=== PATIENT | male | born 1975 | race African-American/Black ===

== ENCOUNTER 2018-05-17 04:14 | Emergency (ER) | payer OTHER ==
[2018-05-17 04:32] VITALS: BP 190/96; PULSE 79; TEMP 97.8; BMI 41.8
--- NOTE | 2018-05-17 05:32 | PDOC ---
Attending Attestation - Resident Resident Name: Ok Freed - ED Attending Attestation I have performed the following: I have examined & evaluated the patient, The case was reviewed & discussed with the resident, I agree w/resident's findings & plan, Exceptions are as noted
[2018-05-17] MEDS ORDERED: METHOCARBAMOL 500 MG TABLET PO ONE (06:01)
--- NOTE | 2018-05-17 06:04 | PDOC ---
History of Present Illness - General Chief Complaint: Back Pain Stated Complaint: LOWER BACK PAIN Time Seen by Provider: 05/17/18 04:32 History Source: Patient Exam Limitations: No Limitations - History of Present Illness Initial Comments: 05/17/18 05:56 42 yo male no sig pmh presents to the ED with 2 days of worsening right lower back pain. 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 The pain progressively worsened and pt began to have numbness and tingling radiate down the back of his right leg without crossing the knee joint. Pain is made worse with walking and bending forward. Pt went to an urgent care yesterday for the pain, was given a shot of toradol and a flexeril without improvement of symptoms. Denies weakness in the right lower ext, numbness between the legs or changes in urinary or bowel habits. Past History - Past Medical History Allergies/Adverse Reactions: Allergies Allergy/AdvReac Type Severity Reaction Status Date / Time No Known Allergies Allergy Verified 05/17/18 04:30 Home Medications: Ambulatory Orders Methocarbamol [Robaxin -] 500 mg PO BID PRN #14 tablet 05/17/18 Tramadol HCl 50 mg PO Q6H PRN #12 tablet MDD 4 tabs 05/17/18 COPD: No - Immunization History Immunization Up to Date: Yes - Suicide/Smoking/Psychosocial Hx Smoking History: Current every day smoker Have you smoked in the past 12 months: No Number of Cigarettes Smoked Daily: 10 Information on smoking cessation initiated: No Hx Alcohol Use: No Drug/Substance Use Hx: No *Physical Exam - Vital Signs Last Vital Signs Temp Pulse Resp BP Pulse Ox 97.8 F 79 18 190/96 H 98 05/17/18 04:30 05/17/18 04:30 05/17/18 04:30 05/17/18 04:30 05/17/18 04:30 Moderate Sedation - Procedure Monitoring Vital Signs: Procedure Monitoring Vital Signs Temperature 97.8 F 05/17/18 04:30 Pulse Rate 79 05/17/18 04:30 Respiratory Rate 18 05/17/18 04:30 Blood Pressure 190/96 H 05/17/18 04:30 O2 Sat by Pulse Oximetry (%) 98 05/17/18 04:30 *DC/Admit/Observation/Transfer Diagnosis at time of Disposition: Lower back pain Qualifiers: Chronicity: acute Back pain laterality: right Sciatica presence: with sciatica Sciatica laterality: sciatica of right side Qualified Code(s): M54.41 - Lumbago with sciatica, right side - Discharge Dispostion Disposition: HOME Condition at time of disposition: Stable Decision to Admit order: No - Prescriptions Prescriptions: Methocarbamol [Robaxin -] 500 mg PO BID PRN #14 tablet PRN Reason: Muscle Spasms Tramadol HCl 50 mg PO Q6H PRN #12 tablet MDD 4 tabs PRN Reason: Severe Pain - Referrals Referrals: Bi Hendrix MD [Primary Care Provider] - - Patient Instructions Printed Discharge Instructions: DI for Sciatica Additional Instructions: Please take medications Methocarbamol 500mg 2 times daily and Tramadol 50mg as needed for pain relief. Make appointment with your primary care doctor within the next 24 to 48 hours regarding your visit. Return to the Emergency Room for new or concerning symptoms including but not limited to: weakness or sensory changes down right leg, numbness between your legs, severe back pain, high fevers or weakness. Thank you. - Post Discharge Activity
[2018-05-17] MEDS ORDERED: METHOCARBAMOL 500 MG TABLET ONE (06:22)
== END 2018-05-17 06:28 | disposition home or self-care (01) ==
LOC: JER 04:14
DX: M54.41 Lumbago with sciatica, right side (principal); X50.0XXA Overexertion from strenuous movement or load, initial encounter; Y93.E9 Activity, other interior property and clothing maintenance; Y92.89 Other specified places as the place of occurrence of the external cause; Y99.0 Civilian activity done for income or pay
CPT/HCPCS: 99282-25